=== PATIENT | female | born 1935 | race Caucasian/White ===

== ENCOUNTER 2018-10-03 22:24 | Inpatient (IN) | payer MEDICARE, BC ==
[2018-10-03] MEDS ORDERED: NACL 0.9% 3 ML SYG IV (23:30)
[2018-10-03] MEDS ORDERED: DEXTROSE 50% 50 ML SYRINGE IV ×2 (23:45)
[2018-10-03] MEDS ORDERED: GLUCOSE GEL 15 GRAM TUBE BUCCAL (23:45)
[2018-10-03] MEDS ORDERED: GLUCAGON 1 MG INJ IM (23:45)
[2018-10-03] MEDS ORDERED: GLUCOSE GEL 15 GRAM TUBE PO ×2 (23:45)
[2018-10-04] MEDS: morphine 2 MG INJ IV ×2 (00:08→14:41)
[2018-10-04] MEDS: ACCU-CHEK XX (02:04)
[2018-10-04] MEDS: PANTOPRAZOLE (EC) 40 MG TAB PO (05:38)
[2018-10-04 06:35] LABS: ADD MAN DIFF? NO
[2018-10-04 06:40] LABS: BASOPHILS % 0.3 % (0.0-2.0); EOSINOPHILS # 0.3 10^3/ul (0.0-0.5); EOSINOPHILS % 4.1 % (0.0-7.0); HEMATOCRIT 25.3 % (37.0-47.0); HEMOGLOBIN 8.6 g/dl (12.0-16.0); LYMPHOCYTES # 1.3 10^3/ul (0.8-2.9); LYMPHOCYTES % 17.7 % (15.0-51.0); MEAN CORPUSCULAR VOLUME 82.4 fl (82.0-101.0); MEAN PLATELET VOLUME 11.2 fl (7.4-10.4); MONOCYTE # 0.9 10^3/ul (0.3-0.9); MONOCYTES % 12.3 % (0.0-11.0); NEUTROPHIL # 4.8 10^3/ul (1.6-7.5); NEUTROPHILS % 64.9 % (39.0-77.0); PLATELET COUNT 237 10^3/UL (140-415); RED BLOOD COUNT 3.07 10^6/ul (4.20-5.40); RED CELL DISTRIBUTION WIDTH 14.4 % (11.5-14.5)
[2018-10-04 06:40] LABS: WHITE BLOOD COUNT 7.4 10^3/ul (4.8-10.8)
[2018-10-04 06:54] LABS: HEMOGLOBIN A1C 6.4 % (0-5.9)
[2018-10-04 07:33] LABS: ALANINE AMINOTRANSFERASE 44 IU/L (13-69); ALBUMIN 3.2 g/dl (3.3-4.9); ALBUMIN/GLOBULIN RATIO 0.96; ALKALINE PHOSPHATASE 78 IU/L (42-121); ANION GAP 7 (5-13); ASPARTATE AMINO TRANSFERASE 54 IU/L (15-46); BILIRUBIN,INDIRECT 0.5 mg/dl (0-1.1); BILIRUBIN,TOTAL 0.5 mg/dl (0.2-1.3); BLOOD UREA NITROGEN 18 mg/dl (7-20); CALCIUM 8.4 mg/dl (8.4-10.2); CARBON DIOXIDE 29 mmol/L (21-31); CHLORIDE 98 mmol/L (97-110); GLUCOSE 133 mg/dl (70-220); POTASSIUM 3.7 mmol/L (3.5-5.1); SODIUM 134 mmol/L (135-144); TOTAL PROTEIN 6.5 g/dl (6.1-8.1)
[2018-10-04] MEDS: OXYBUTYNIN (XL) 5 MG TAB PO (08:16)
[2018-10-04] MEDS: CHOLECALCIFEROL 2,000 UNIT CAP PO (08:17)
[2018-10-04] MEDS: HYDROCHLOROTHIAZIDE 12.5 MG CAP PO (08:17)
[2018-10-04] MEDS: GABAPENTIN 300 MG CAP PO ×3 (08:17→21:52)
[2018-10-04] MEDS: SERTRALINE 100 MG TAB PO (08:17)
[2018-10-04] MEDS: LISINOPRIL 20 MG TAB PO ×2 (08:17→21:53)
[2018-10-04] MEDS: INSULIN ASPART [NOVOLOG] 3 ML PEN SC ×4 (08:28→22:00)
[2018-10-04] MEDS: CEFTRIAXONE 1 GM/50 ML (PMX) 50 ML IVPB (11:45)
[2018-10-04 12:52] LABS: INR 1.05; PROTIME 13.8 Sec (11.9-14.9); PT RATIO 1.1
[2018-10-04 13:16] LABS: TROPONIN-I < 0.012 ng/ml (0.000-0.120)
[2018-10-04] MEDS: ZOLPIDEM 5 MG TAB PO (21:52)
[2018-10-04] MEDS: DOCUSATE SODIUM 100 MG CAP PO (21:52)
[2018-10-04] MEDS: ACETAMINOPHEN 325 MG TAB PO (21:53)
[2018-10-04] MEDS: DEXTROSE 5%-0.45% NACL 1,000 ML IV (22:01)
[2018-10-05 00:33] LABS: IMMEDIATE SPIN CROSSMATCH 1 6
[2018-10-05] MEDS: ACCU-CHEK XX (02:00)
[2018-10-05] MEDS: PANTOPRAZOLE (EC) 40 MG TAB PO (05:24)
[2018-10-05] MEDS: CHOLECALCIFEROL 2,000 UNIT CAP PO (09:04)
[2018-10-05] MEDS: OXYBUTYNIN (XL) 5 MG TAB PO (09:04)
[2018-10-05] MEDS: DOCUSATE SODIUM 100 MG CAP PO ×2 (09:04→22:40)
[2018-10-05] MEDS: GABAPENTIN 300 MG CAP PO ×3 (09:04→22:40)
[2018-10-05] MEDS: morphine 2 MG INJ IV (09:05)
[2018-10-05] MEDS: SERTRALINE 100 MG TAB PO (09:05)
[2018-10-05] MEDS: LISINOPRIL 20 MG TAB PO ×2 (09:05→22:40)
[2018-10-05] MEDS: INSULIN ASPART [NOVOLOG] 3 ML PEN SC ×4 (09:18→21:00)
[2018-10-05 09:37] LABS: ADD MAN DIFF? NO
[2018-10-05 09:39] LABS: BASOPHILS % 0.4 % (0.0-2.0); EOSINOPHILS # 0.2 10^3/ul (0.0-0.5); HEMATOCRIT 33.3 % (37.0-47.0); LYMPHOCYTES # 1.3 10^3/ul (0.8-2.9); LYMPHOCYTES % 16.4 % (15.0-51.0); MEAN CORPUSCULAR HEMOGLOBIN 27.6 pg (29.0-33.0); MEAN CORPUSCULAR VOLUME 83.5 fl (82.0-101.0); MEAN PLATELET VOLUME 11.2 fl (7.4-10.4); MONOCYTE # 0.9 10^3/ul (0.3-0.9); MONOCYTES % 11.4 % (0.0-11.0); NEUTROPHIL # 5.5 10^3/ul (1.6-7.5); NEUTROPHILS % 68.1 % (39.0-77.0); PLATELET COUNT 271 10^3/UL (140-415); RED BLOOD COUNT 3.99 10^6/ul (4.20-5.40); RED CELL DISTRIBUTION WIDTH 15.5 % (11.5-14.5)
[2018-10-05 10:03] LABS: ANION GAP 8 (5-13); BLOOD UREA NITROGEN 15 mg/dl (7-20); CALCIUM 8.5 mg/dl (8.4-10.2); CARBON DIOXIDE 29 mmol/L (21-31); CHLORIDE 97 mmol/L (97-110); CREATININE 0.72 mg/dl (0.44-1.00); GLUCOSE 224 mg/dl (70-220); POTASSIUM 3.9 mmol/L (3.5-5.1); SODIUM 134 mmol/L (135-144)
[2018-10-05] MEDS: CEFTRIAXONE 1 GM/50 ML (PMX) 50 ML IVPB (11:54)
[2018-10-05 13:44] LABS: ADD UMIC YES; UR ASCORBIC ACID NEGATIVE (NEGATIVE); UR BILIRUBIN (Dip) NEGATIVE (NEGATIVE); UR BLOOD (Dip) 1+ mg/dL (NEGATIVE); UR CLARITY CLEAR (CLEAR); UR COLOR YELLOW (YELLOW); UR GLUCOSE (Dip) NEGATIVE (NEGATIVE); UR KETONES (Dip) NEGATIVE (NEGATIVE); UR LEUKOCYTE ESTERASE (Dip) 1+ Leu/ul (NEGATIVE); UR NITRITE (Dip) NEGATIVE (NEGATIVE); UR RBC 4 /HPF (0-5); UR TOTAL PROTEIN (Dip) NEGATIVE (NEGATIVE); UR UROBILINOGEN (Dip) NEGATIVE (NEGATIVE); UR WBC 5 /HPF (0-5)
[2018-10-05] MEDS ORDERED: ONDANSETRON 4 MG INJ (14:30)
[2018-10-05] MEDS ORDERED: morphine SULFATE/PF (10 MG/10 ML) INJ (14:30)
[2018-10-05] MEDS ORDERED: METOCLOPRAMIDE 10 MG INJ (14:30)
[2018-10-05] MEDS ORDERED: FENTAnyl 50 MCG/ML VIAL (14:59)
[2018-10-05] MEDS ORDERED: EPHEDrine 25 MG/5 ML SYG ×2 (15:44→16:00)
[2018-10-05] MEDS ORDERED: ETOMIDATE 20 MG INJ (16:00)
[2018-10-05] MEDS: POLYMYXIN/BACITRACIN 1L IRRIG IRR ×2 (16:20→16:26)
[2018-10-05] MEDS ORDERED: ROPIVACAINE 0.5 % 30 ML VIAL (16:36)
[2018-10-05] MEDS ORDERED: PHENYLephrine (100 MCG/ML) 10ML SYG (16:46)
[2018-10-05] MEDS ORDERED: DIPHENHYDRAMINE 50 MG INJ (17:19)
[2018-10-05] MEDS ORDERED: ONDANSETRON 4 MG INJ IV (17:30)
[2018-10-05] MEDS ORDERED: FENTAnyl 50 MCG/ML VIAL IV ×3 (17:30)
[2018-10-05] MEDS ORDERED: NACL 0.9% 3 ML SYG IV (17:30)
[2018-10-05] MEDS ORDERED: CEFAZOLIN 2 GM/50 ML (PMX) 50 ML IVPB (17:30)
[2018-10-05] MEDS ORDERED: HYDROmorphONE 1 MG/5 ML IV SYRINGE IV ×3 (17:30→17:37)
[2018-10-05] MEDS ORDERED: HYDROmorphONE 1 MG/ML SYG IV (17:30)
[2018-10-05] MEDS: DIPHENHYDRAMINE 50 MG INJ IV (17:37)
[2018-10-05] MEDS: HYDROmorphONE 1 MG/5 ML IV SYRINGE IV (17:38)
[2018-10-05] MEDS: EPHEDrine 25 MG/5 ML SYG IV (18:07)
[2018-10-05 18:13] LABS: ADD MAN DIFF? NO
[2018-10-05 18:17] LABS: BASOPHIL # 0.1 10^3/ul (0.0-0.1); BASOPHILS % 0.5 % (0.0-2.0); EOSINOPHILS # 0.3 10^3/ul (0.0-0.5); EOSINOPHILS % 1.9 % (0.0-7.0); HEMATOCRIT 37.5 % (37.0-47.0); HEMOGLOBIN 12.1 g/dl (12.0-16.0); LYMPHOCYTES # 2.4 10^3/ul (0.8-2.9); LYMPHOCYTES % 15.6 % (15.0-51.0); MEAN CORPUSCULAR HEMOGLOBIN 27.3 pg (29.0-33.0); MEAN CORPUSCULAR HGB CONC 32.3 g/dl (32.0-37.0); MEAN CORPUSCULAR VOLUME 84.7 fl (82.0-101.0); MEAN PLATELET VOLUME 11.7 fl (7.4-10.4); MONOCYTE # 1.3 10^3/ul (0.3-0.9); MONOCYTES % 8.5 % (0.0-11.0); NEUTROPHILS % 72.4 % (39.0-77.0); PLATELET COUNT 263 10^3/UL (140-415); RED BLOOD COUNT 4.43 10^6/ul (4.20-5.40); RED CELL DISTRIBUTION WIDTH 15.8 % (11.5-14.5)
[2018-10-05 18:17] LABS: WHITE BLOOD COUNT 15.1 10^3/ul (4.8-10.8)
[2018-10-05] MEDS ORDERED: ALBUMIN HUMAN 5% 250 ML (18:18)
[2018-10-05] MEDS: ALBUMIN HUMAN 5% 250 ML IV ×2 (18:35→18:55)
[2018-10-05] MEDS: SOD CHLORIDE 0.9% 1,000 ML IV (20:12)
[2018-10-05] MEDS ORDERED: LORAZEPAM 1 MG TAB (22:37)
[2018-10-05] MEDS: LORAZEPAM 1 MG TAB PO (22:39)
[2018-10-05 23:11] LABS: ANION GAP 9 (5-13); BLOOD UREA NITROGEN 16 mg/dl (7-20); CALCIUM 8.2 mg/dl (8.4-10.2); CARBON DIOXIDE 27 mmol/L (21-31); CHLORIDE 99 mmol/L (97-110); CREATININE 1.19 mg/dl (0.44-1.00); GLUCOSE 205 mg/dl (70-220); SODIUM 135 mmol/L (135-144)
[2018-10-06] MEDS: ACETAMINOPHEN 325 MG TAB PO ×2 (00:16→19:40)
[2018-10-06] MEDS ORDERED: ACETAMINOPHEN 650 MG SUPP PR (01:00)
[2018-10-06] MEDS: SOD CHLORIDE 0.9% 500 ML IV (01:13)
[2018-10-06] MEDS: ACCU-CHEK XX (02:00)
[2018-10-06] MEDS: SOD CHLORIDE 0.9% 1,000 ML IV ×2 (06:16→14:30)
[2018-10-06] MEDS: PANTOPRAZOLE (EC) 40 MG TAB PO (06:16)
[2018-10-06] MEDS: INSULIN ASPART [NOVOLOG] 3 ML PEN SC ×4 (08:20→21:28)
[2018-10-06] MEDS: DOCUSATE SODIUM 100 MG CAP PO ×2 (08:21→21:03)
[2018-10-06] MEDS: OXYBUTYNIN (XL) 5 MG TAB PO (08:22)
[2018-10-06] MEDS: GABAPENTIN 300 MG CAP PO ×3 (08:22→21:03)
[2018-10-06] MEDS: SERTRALINE 100 MG TAB PO (08:22)
[2018-10-06] MEDS: CHOLECALCIFEROL 2,000 UNIT CAP PO (08:22)
[2018-10-06] MEDS: LISINOPRIL 20 MG TAB PO (08:22)
[2018-10-06] MEDS: ENOXAPARIN 40 MG/0.4 ML SYG SC (08:27)
[2018-10-06] MEDS ORDERED: VANCOMYCIN IV PER PHARMACY XX (09:30)
[2018-10-06] MEDS: PIPER-TAZO 3.375 GM IV (PMX) 100 ML IVPB ×2 (12:13→19:40)
[2018-10-06] MEDS: VANCOMYCIN 1.5 GM/NS 250 ML 250 ML IVPB (13:17)
[2018-10-06 19:13] LABS: TROPONIN-I < 0.012 ng/ml (0.000-0.120)
[2018-10-06] MEDS: INSULIN GLARGINE [LANTus] (100 UNITS/ML) SYG SC (19:48)
[2018-10-06] MEDS: HYDROCODONE/APAP (5/325) TAB PO (21:03)
[2018-10-06] MEDS: LORAZEPAM 1 MG TAB PO (21:08)
[2018-10-07 01:24] LABS: TROPONIN-I < 0.012 ng/ml (0.000-0.120)
[2018-10-07] MEDS: ACCU-CHEK XX (02:00)
[2018-10-07] MEDS: PIPER-TAZO 3.375 GM IV (PMX) 100 ML IVPB ×3 (03:27→19:25)
[2018-10-07] MEDS: SOD CHLORIDE 0.9% 1,000 ML IV (05:41)
[2018-10-07] MEDS: PANTOPRAZOLE (EC) 40 MG TAB PO (05:42)
[2018-10-07 06:45] LABS: ADD MAN DIFF? NO
[2018-10-07 06:58] LABS: BASOPHIL # 0.1 10^3/ul (0.0-0.1); BASOPHILS % 0.6 % (0.0-2.0); EOSINOPHILS # 0.7 10^3/ul (0.0-0.5); HEMATOCRIT 27.8 % (37.0-47.0); HEMOGLOBIN 9.2 g/dl (12.0-16.0); LYMPHOCYTES # 1.5 10^3/ul (0.8-2.9); MEAN CORPUSCULAR HEMOGLOBIN 28.5 pg (29.0-33.0); MEAN CORPUSCULAR HGB CONC 33.1 g/dl (32.0-37.0); MEAN CORPUSCULAR VOLUME 86.1 fl (82.0-101.0); MEAN PLATELET VOLUME 10.6 fl (7.4-10.4); MONOCYTES % 9.8 % (0.0-11.0); NEUTROPHIL # 6.8 10^3/ul (1.6-7.5); NEUTROPHILS % 65.7 % (39.0-77.0); PLATELET COUNT 320 10^3/UL (140-415); RED BLOOD COUNT 3.23 10^6/ul (4.20-5.40)
[2018-10-07 06:58] LABS: WHITE BLOOD COUNT 10.3 10^3/ul (4.8-10.8)
[2018-10-07 07:14] LABS: ALANINE AMINOTRANSFERASE 39 IU/L (13-69); ALKALINE PHOSPHATASE 69 IU/L (42-121); ANION GAP 5 (5-13); ASPARTATE AMINO TRANSFERASE 56 IU/L (15-46); BILIRUBIN,INDIRECT 0.9 mg/dl (0-1.1); BILIRUBIN,TOTAL 0.9 mg/dl (0.2-1.3); BLOOD UREA NITROGEN 16 mg/dl (7-20); CALCIUM 8.4 mg/dl (8.4-10.2); CARBON DIOXIDE 28 mmol/L (21-31); CHLORIDE 103 mmol/L (97-110); CREATININE 0.98 mg/dl (0.44-1.00); GLUCOSE 169 mg/dl (70-220); SODIUM 136 mmol/L (135-144)
[2018-10-07 07:21] LABS: MAGNESIUM 1.6 mg/dl (1.7-2.5)
[2018-10-07 07:21] LABS: PHOSPHORUS 3.2 mg/dl (2.5-4.9)
[2018-10-07] MEDS: INSULIN ASPART [NOVOLOG] 3 ML PEN SC ×4 (08:24→20:47)
[2018-10-07] MEDS: OXYBUTYNIN (XL) 5 MG TAB PO (09:01)
[2018-10-07] MEDS: GABAPENTIN 300 MG CAP PO ×3 (09:01→20:47)
[2018-10-07] MEDS: SERTRALINE 100 MG TAB PO (09:01)
[2018-10-07] MEDS: CHOLECALCIFEROL 2,000 UNIT CAP PO (09:01)
[2018-10-07] MEDS: DOCUSATE SODIUM 100 MG CAP PO ×2 (09:01→20:47)
[2018-10-07] MEDS: ENOXAPARIN 40 MG/0.4 ML SYG SC (09:12)
[2018-10-07] MEDS: HYDROCODONE/APAP (5/325) TAB PO (10:26)
[2018-10-07] MEDS: MAGNESIUM SULFATE 2 GM/50 ML 50 ML IVPB (10:31)
[2018-10-07] MEDS ORDERED: ALBUTEROL/IPRATROPIUM (NEB) 3 ML AMP HHN (15:30)
[2018-10-07 16:22] LABS: ADD UMIC YES; UR ASCORBIC ACID NEGATIVE (NEGATIVE); UR BILIRUBIN (Dip) NEGATIVE (NEGATIVE); UR BLOOD (Dip) 1+ mg/dL (NEGATIVE); UR CLARITY CLEAR (CLEAR); UR COLOR STRAW (YELLOW); UR GLUCOSE (Dip) NEGATIVE (NEGATIVE); UR KETONES (Dip) NEGATIVE (NEGATIVE); UR LEUKOCYTE ESTERASE (Dip) TRACE Leu/ul (NEGATIVE); UR NITRITE (Dip) NEGATIVE (NEGATIVE); UR RBC 0 /HPF (0-5); UR SPECIFIC GRAVITY (Dip) 1.004 (1.003-1.030); UR TOTAL PROTEIN (Dip) NEGATIVE (NEGATIVE); UR UROBILINOGEN (Dip) NEGATIVE (NEGATIVE); UR WBC 8 /HPF (0-5)
[2018-10-07] MEDS: oxyCODONE 5 MG TAB PO (19:56)
[2018-10-07] MEDS: INSULIN GLARGINE [LANTus] (100 UNITS/ML) SYG SC (20:04)
[2018-10-07] MEDS: LORAZEPAM 1 MG TAB PO (20:47)
[2018-10-08] MEDS: VANCOMYCIN 1.25 GM/NS 250 ML 250 ML IVPB (00:55)
[2018-10-08] MEDS: ACCU-CHEK XX (02:00)
[2018-10-08] MEDS: PIPER-TAZO 3.375 GM IV (PMX) 100 ML IVPB ×3 (04:30→20:07)
[2018-10-08] MEDS: PANTOPRAZOLE (EC) 40 MG TAB PO (06:02)
[2018-10-08 06:55] LABS: ADD MAN DIFF? NO
[2018-10-08 07:07] LABS: BASOPHIL # 0.1 10^3/ul (0.0-0.1); BASOPHILS % 0.5 % (0.0-2.0); EOSINOPHILS # 0.7 10^3/ul (0.0-0.5); EOSINOPHILS % 5.2 % (0.0-7.0); HEMATOCRIT 31.1 % (37.0-47.0); HEMOGLOBIN 10.2 g/dl (12.0-16.0); LYMPHOCYTES # 1.9 10^3/ul (0.8-2.9); LYMPHOCYTES % 14.6 % (15.0-51.0); MEAN CORPUSCULAR HEMOGLOBIN 27.9 pg (29.0-33.0); MEAN CORPUSCULAR HGB CONC 32.8 g/dl (32.0-37.0); MEAN PLATELET VOLUME 10.5 fl (7.4-10.4); MONOCYTE # 0.9 10^3/ul (0.3-0.9); MONOCYTES % 7.2 % (0.0-11.0); NEUTROPHIL # 9.2 10^3/ul (1.6-7.5); NEUTROPHILS % 70.2 % (39.0-77.0); PLATELET COUNT 417 10^3/UL (140-415); RED BLOOD COUNT 3.66 10^6/ul (4.20-5.40); RED CELL DISTRIBUTION WIDTH 16.2 % (11.5-14.5)
[2018-10-08 07:07] LABS: WHITE BLOOD COUNT 13.1 10^3/ul (4.8-10.8)
[2018-10-08 07:23] LABS: ANION GAP 6 (5-13); BLOOD UREA NITROGEN 10 mg/dl (7-20); CARBON DIOXIDE 29 mmol/L (21-31); CHLORIDE 102 mmol/L (97-110); CREATININE 0.81 mg/dl (0.44-1.00); GLUCOSE 162 mg/dl (70-220); POTASSIUM 4.1 mmol/L (3.5-5.1); SODIUM 137 mmol/L (135-144)
[2018-10-08] MEDS: INSULIN ASPART [NOVOLOG] 3 ML PEN SC ×4 (07:52→20:15)
[2018-10-08] MEDS: SERTRALINE 100 MG TAB PO (08:55)
[2018-10-08] MEDS: DOCUSATE SODIUM 100 MG CAP PO ×2 (08:55→20:07)
[2018-10-08] MEDS: CHOLECALCIFEROL 2,000 UNIT CAP PO (08:55)
[2018-10-08] MEDS: GABAPENTIN 300 MG CAP PO ×3 (08:56→20:07)
[2018-10-08] MEDS: OXYBUTYNIN (XL) 5 MG TAB PO (08:57)
[2018-10-08] MEDS: oxyCODONE 5 MG TAB PO ×2 (09:03→14:54)
[2018-10-08] MEDS: ENOXAPARIN 40 MG/0.4 ML SYG SC (09:17)
[2018-10-08] MEDS ORDERED: hydrALAzine 20 MG INJ IV (11:00)
[2018-10-08] MEDS: LISINOPRIL 10 MG TAB PO (11:34)
[2018-10-08] MEDS: INSULIN GLARGINE [LANTus] (100 UNITS/ML) SYG SC (20:19)
[2018-10-08] MEDS: LORAZEPAM 1 MG TAB PO (22:26)
[2018-10-09] MEDS: ACCU-CHEK XX (02:00)
[2018-10-09] MEDS: VANCOMYCIN 1 GM 250 ML IVPB (02:53)
[2018-10-09] MEDS: PIPER-TAZO 3.375 GM IV (PMX) 100 ML IVPB ×3 (04:59→19:30)
[2018-10-09] MEDS: PANTOPRAZOLE (EC) 40 MG TAB PO (05:43)
[2018-10-09 06:14] LABS: ADD MAN DIFF? NO
[2018-10-09 06:25] LABS: BASOPHIL # 0.1 10^3/ul (0.0-0.1); BASOPHILS % 0.5 % (0.0-2.0); EOSINOPHILS # 0.6 10^3/ul (0.0-0.5); EOSINOPHILS % 4.9 % (0.0-7.0); HEMATOCRIT 28.9 % (37.0-47.0); HEMOGLOBIN 9.6 g/dl (12.0-16.0); LYMPHOCYTES # 1.6 10^3/ul (0.8-2.9); LYMPHOCYTES % 12.9 % (15.0-51.0); MEAN CORPUSCULAR HEMOGLOBIN 28.2 pg (29.0-33.0); MEAN CORPUSCULAR HGB CONC 33.2 g/dl (32.0-37.0); MEAN PLATELET VOLUME 10.4 fl (7.4-10.4); MONOCYTE # 0.8 10^3/ul (0.3-0.9); MONOCYTES % 6.9 % (0.0-11.0); NEUTROPHIL # 8.5 10^3/ul (1.6-7.5); PLATELET COUNT 425 10^3/UL (140-415); RED CELL DISTRIBUTION WIDTH 16.1 % (11.5-14.5)
[2018-10-09 06:49] LABS: ANION GAP 7 (5-13); BLOOD UREA NITROGEN 10 mg/dl (7-20); CALCIUM 8.8 mg/dl (8.4-10.2); CARBON DIOXIDE 28 mmol/L (21-31); CHLORIDE 102 mmol/L (97-110); CREATININE 0.73 mg/dl (0.44-1.00); GLUCOSE 178 mg/dl (70-220); POTASSIUM 3.7 mmol/L (3.5-5.1); SODIUM 137 mmol/L (135-144)
[2018-10-09 06:51] LABS: IRON 64 ug/dl (35-150)
[2018-10-09 07:01] LABS: % IRON SATURATION 26 % SAT (22-52); TOTAL IRON BINDING CAPACITY 247 ug/dl (241-421)
[2018-10-09] MEDS: LISINOPRIL 10 MG TAB PO (08:28)
[2018-10-09] MEDS: GABAPENTIN 300 MG CAP PO ×2 (08:28→13:04)
[2018-10-09] MEDS: CHOLECALCIFEROL 2,000 UNIT CAP PO (08:28)
[2018-10-09] MEDS: DOCUSATE SODIUM 100 MG CAP PO (08:28)
[2018-10-09] MEDS: SERTRALINE 100 MG TAB PO (08:28)
[2018-10-09] MEDS: OXYBUTYNIN (XL) 5 MG TAB PO (08:28)
[2018-10-09] MEDS: INSULIN ASPART [NOVOLOG] 3 ML PEN SC ×3 (08:39→17:30)
[2018-10-09] MEDS: ENOXAPARIN 40 MG/0.4 ML SYG SC (08:40)
[2018-10-09] MEDS: ERGOCALCIFEROL 50,000 UNIT CAP PO (17:22)
[2018-10-09] MEDS: INSULIN GLARGINE [LANTus] (100 UNITS/ML) SYG SC (20:00)
== END 2018-10-09 20:15 | disposition home health service (06) | DRG 481 ==
LOC: 6WM 22:24
PROVIDERS: Internal Medicine
PROC: 0QS604Z Reposition Right Upper Femur with Internal Fixation Device, Open Approach (ICD-10-PCS; principal; 2018-10-05 13:30)
PROC: 30233N1 Transfusion of Nonautologous Red Blood Cells into Peripheral Vein, Percutaneous Approach (ICD-10-PCS; 2018-10-05 13:30)
DX: S72.141A Displaced intertrochanteric fracture of right femur, initial encounter for closed fracture (principal); N39.0 Urinary tract infection, site not specified; M19.90 Unspecified osteoarthritis, unspecified site; E66.9 Obesity, unspecified; Z68.32 Body mass index [BMI] 32.0-32.9, adult; R42 Dizziness and giddiness; I25.10 Atherosclerotic heart disease of native coronary artery without angina pectoris; B96.20 Unspecified Escherichia coli [E. coli] as the cause of diseases classified elsewhere; N32.81 Overactive bladder; E11.43 Type 2 diabetes mellitus with diabetic autonomic (poly)neuropathy; D72.829 Elevated white blood cell count, unspecified; E78.5 Hyperlipidemia, unspecified; R50.82 Postprocedural fever; I10 Essential (primary) hypertension; Z79.4 Long term (current) use of insulin; Z87.891 Personal history of nicotine dependence; Z79.82 Long term (current) use of aspirin; W01.0XXA Fall on same level from slipping, tripping and stumbling without subsequent striking against object, initial encounter
CPT/HCPCS: 36430; 71045; 73500; 73501; 73510; 73530; 80048; 80053; 81001; 82652; 82962; 83036; 83540; 83735; 84100; 84484; 85025; 85610; 86850; 86900; 86901; 86920; 87040-91; 87086; 93005; 93306; 97110; 97116; 97163; 97530